=== PATIENT | female | born 1955 ===

== ENCOUNTER 2018-08-21 08:03 | Outpatient (CLI) | payer OTHER | END 2018-08-21 08:04 | disposition home or self-care (01) | LOC: C.CTH 08:03 ==

== ENCOUNTER 2018-08-21 08:13 | Outpatient (CLI) | payer OTHER | END 2018-08-21 08:14 | disposition home or self-care (01) | LOC: C.LAB 08:13 | DX: N20.0 Calculus of kidney (principal) ==